=== PATIENT | male | born 1990 | race Caucasian/White ===

== ENCOUNTER → 2023-08-08 | Outpatient (CLI) | payer OTHER ==
[~2023-08-08] VITALS: Ht 182.9 cm; Wt 120.0 kg
[2023-08-08 13:38] VITALS: BP 166/85
[2023-08-08 13:42] LABS: BASO # 0.01 K/mm3 (0.02-0.10); EOS # 0.01 K/mm3 (0.04-0.40); EOS % 0.1 % (0.0-4.0); HEMATOCRIT 49.1 % (42.0-52.0); HEMOGLOBIN 16.6 g/dL (13.5-18.0); LYMPH# 1.39 K/mm3 (1.50-4.00); MEAN CELL VOLUME 94 fl (78-100); MEAN CORPUSCULAR HEMOGLOBIN 32 pg (27-31); MEAN CORPUSCULAR HGB CONC 34 g/dL (33-37); MEAN PLATELET VOLUME 11.4 fl (7.4-10.4); MONO # 0.74 K/mm3 (0.20-0.80); NEU # 13.96 K/mm3 (1.40-6.50); PLATELET COUNT 283 K/mm3 (130-400); RED BLOOD COUNT 5.23 M/mm3 (4.20-5.60); RED CELL DISTRIBUTION WIDTH 12.7 % (11.5-14.5); WHITE BLOOD COUNT 16.1 K/mm3 (4.8-10.8)
[2023-08-08 13:44] LABS: ALBUMIN 4.6 g/dL (3.5-5.0); POTASSIUM 3.5 mmol/L (3.5-5.1)
[2023-08-08 13:45] LABS: CALCIUM 9.5 mg/dL (8.3-10.5)
[2023-08-08 13:47] LABS: TOTAL PROTEIN 7.6 g/dL (6.4-8.3)
[2023-08-08 13:49] LABS: TOTAL BILIRUBIN 2.3 mg/dL (0.2-1.2)
[2023-08-08 16:04] LABS: URINE APPEARANCE CLEAR; URINE BLOOD TRACE (NEGATIVE); URINE COLOR AMBER; URINE KETONE 2+ (NEGATIVE); URINE LEUKOCYTE ESTERASE TRACE (NEGATIVE); URINE PROTEIN(semi-quant) TRACE (NEGATIVE)
[2023-08-08 16:05] LABS: URINE BILIRUBIN NEGATIVE (NEGATIVE); URINE GLUCOSE NEGATIVE (NEGATIVE); URINE NITRATE NEGATIVE (NEGATIVE); URINE UROBILINOGEN NORMAL (NORMAL)
[2023-08-08 16:11] LABS: URINE MUCUS PRESENT (NOT PRESENT)
[2023-08-08 16:12] LABS: URINE WBC 0-1 /hpf (0-3)
== END ==
LOC: AMSURD 12:52
PROVIDERS: Nurse Practitioner Family
DX: R10.9 Unspecified abdominal pain (principal); R11.2 Nausea with vomiting, unspecified
CPT/HCPCS: J0780; J1200; J7030

== ENCOUNTER → 2023-10-26 | Outpatient (CLI) | payer OTHER | LOC: RAD 08:30 | DX: R11.2 Nausea with vomiting, unspecified (principal); R10.9 Unspecified abdominal pain; Z87.11 Personal history of peptic ulcer disease | CPT/HCPCS: Q9967 ==